=== PATIENT | male | born 1990 | race Caucasian/White ===

== ENCOUNTER 2018-10-26 15:21 | Emergency (ER) | payer BC, OTHER ==
[2018-10-26] MEDS: IBUPROFEN 600 MG TAB PO (16:40)
[2018-10-26] MEDS: CEFAZOLIN 1 GM INJ IM (16:41)
== END 2018-10-26 17:33 | disposition home or self-care (01) ==
LOC: FTE 15:21
DX: S62.634A Displaced fracture of distal phalanx of right ring finger, initial encounter for closed fracture (principal); W23.0XXA Caught, crushed, jammed, or pinched between moving objects, initial encounter; Y92.9 Unspecified place or not applicable
CPT/HCPCS: 29130; 73130-RT; 99283-25